=== PATIENT | female | born 1995 | race American Indian/Alaskan Native ===

== ENCOUNTER 2020-09-15 11:03 | Emergency (ER) | payer SELFPAY ==
[2020-09-15] MEDS ORDERED: ACETAMINOPHEN 325 MG TAB ONE (11:30)
[2020-09-15] MEDS ORDERED: ACETAMINOPHEN 325 MG TAB PO ONE (11:31)
--- NOTE | 2020-09-15 11:33 | Event Note ---
ED Screening Note Date of service: 09/15/20 Time: 11:32 ED Screening Note: 25-year-old -[place] female presents to the emergency room complaining of right elbow pain. Patient states that she had fallen yesterday with her hands out reached trying to brace herself. She states that her right elbow was swollen painful and not able to fully extend. Patient reports her last menstrual period was 09/15/2020. She denies any possibility of being . Denies any other injuries no head injury no loss of consciousness. Patient denies any symptoms prior to falling. This initial assessment/diagnostic orders/clinical plan/treatment(s) is/are subject to change based on patients health status, clinical progression and re- assessment by fellow clinical providers in the ED. Further treatment and workup at subsequent clinical providers discretion. Patient/guardian urged not to elope from the ED as their condition may be serious if not clinically assessed and managed. Initial orders include:
--- NOTE | 2020-09-15 12:15 | XRay Report ---
Right elbow 2 views INDICATION: Right elbow pain IMPRESSION: Small elbow effusion is present. There is a subtle lucency involving the radial head that is suspicious for nondisplaced fracture. CT of the elbow is suggested for further evaluation. Signer Name: Fletcher Dejesus MD Signed: 09/15/2020 12:11 PM Workstation Name: [id number]
[2020-09-15 12:54] VITALS: BP 130/69
--- NOTE | 2020-09-15 12:56 | Emergency Department Report ---
Upper Extremity - [facility] Chief Complaint: Extremity Injury, Upper Stated Complaint: FELL RT ARM PAINS Time Seen by Provider: 09/15/20 11:29 Upper Extremity: Right Elbow Occurred When: 1 Day Mechanism: Fall, Hyperextension Severity: moderate Symptoms: Yes Pain with Movement, Yes Limited Range of Movement, Yes Swelling, No Deformity, No Numbness, No Weakness Other History: 25-year-old -[place] female presents to the emergency room complaining of right elbow pain. Patient states that she had fallen yesterday with her hands out reached trying to brace herself. She states that her right elbow was swollen painful and not able to fully extend. Patient reports her last menstrual period was 09/15/2020. She denies any possibility of being . Denies any other injuries no head injury no loss of consciousness. Patient denies any symptoms prior to falling. ED Review of Systems ROS: Stated complaint: FELL RT ARM PAINS Other details as noted in HPI ED Past Medical Hx - Past Medical History Previous Medical History?: No - Surgical History Past Surgical History?: No - Social History Smoking Status: Never Smoker Substance Use Type: None - Medications Home Medications: Home Medications Medication Instructions Recorded Confirmed Last Taken Type Ibuprofen [Motrin 800 MG tab] 800 mg PO Q8HR PRN #30 tablet 09/15/20 Unknown Rx Upper Extremity Exam - Exam General: Vital signs noted. No distress. Alert and acting appropriately. ED Medical Decision Making - Radiology Data Radiology results: report reviewed Patient: GANESH FREY MR#: [id number] : 1995 Acct:[id number] Age/Sex: 25 / F ADM Date: 09/15/20 Loc: ED Attending Dr: Ordering Physician: CHELSEY CLEMENTS Date of Service: 09/15/20 Procedure(s): XR elbow 2V RT Accession Number(s): [id number] cc: CHELSEY CLEMENTS Fluoro Time In Minutes: Right elbow 2 views INDICATION: Right elbow pain IMPRESSION: Small elbow effusion is present. There is a subtle lucency involving the radial head that is suspicious for nondisplaced fracture. CT of the elbow is suggested for further evaluation. Signer Name: Fletcher Dejesus MD Signed: 09/15/2020 12:11 PM Workstation Name: [id number] Transcribed By: ANABELLA Dictated By: Fletcher Dejesus MD Electronically Authenticated By: Fletcher Dejesus MD Signed Date/Time: 09/15/20 121 DD/ 09 TD/TT: - Medical Decision Making 25-year-old -[place] female presents to the emergency room complaining of right elbow pain. Patient states that she had fallen yesterday with her hands out reached trying to brace herself. She states that her right elbow was swollen painful and not able to fully extend. Patient reports her last menstrual period was 09/15/2020. She denies any possibility of being . Denies any other injuries no head injury no loss of consciousness. Patient denies any symptoms prior to falling. X-ray of right elbow was ordered and complete concern for a nondisplaced lucent fracture recommend CT of the elbow. Spoke to ER attending Dr. Neil he recommends patient to be placed in a splint and follow-up with orthopedic provider. Patient be discharged home on Tylenol 3 and ibuprofen. Critical care attestation.: If time is entered above; I have spent that time in minutes in the direct care of this critically ill patient, excluding procedure time. ED Disposition Clinical Impression: Injury of right elbow Qualifiers: Encounter type: initial encounter Qualified Code(s): S59.901A - Unspecified injury of right elbow, initial encounter Disposition: TO HOME OR SELFCARE Is pt being admited?: No Does the pt Need Aspirin: No Condition: Stable Additional Instructions: X-ray shows concern for a nondisplaced fracture we recommended she follow-up with orthopedics possible further studies. Tylenol or ibuprofen for pain management. Prescriptions: Ibuprofen [Motrin 800 MG tab] 800 mg PO Q8HR PRN #30 tablet PRN Reason: Pain , Severe (7-10) Referrals: [facility], [Primary Care Provider] - 3-5 Days ARGELIA STACK MD [Staff Physician] - 3-5 Days SERENITY ESPINOZA MD [Staff Physician] - 3-5 Days Forms: Work/School Release Form(ED)
== END 2020-09-15 14:30 | disposition home or self-care (01) ==
LOC: ED 11:03
DX: S59.901A Unspecified injury of right elbow, initial encounter (principal); Z79.899 Other long term (current) drug therapy; W18.30XA Fall on same level, unspecified, initial encounter; Y93.89 Activity, other specified; Y92.89 Other specified places as the place of occurrence of the external cause; Y99.8 Other external cause status